=== PATIENT | female | born 1950 | race Caucasian/White ===

== ENCOUNTER → 2024-05-18 | Outpatient (CLI) | payer MEDICARE, BC, SELFPAY ==
--- NOTE | 2024-05-18 13:32 | XR_ITS ---
Examination: PA lateral chest 2 views TECHNIQUE: Upright PA lateral chest 2 views Exam date and time: May 18, 2024 1405 hours Comparison March 19, 2023 INDICATIONS: Shortness of breath several years worse beginning February 2024 FINDINGS: Moderate enlargement cardiac contour Likely mitral prosthetic valve Median sternotomy wires Ventricular cardiac lead satisfactory position Moderate vascular congestion No lobar pneumonia Moderate hyperexpansion IMPRESSION: Moderate enlargement cardiac contour Moderate vascular congestion
[2024-05-18 16:35] LABS: Basophils % (Auto) 0 % (0-2.5); Eosinophils % (Auto) 0 % (0-10); Hematocrit 42.9 % (36.0-46.0); Hemoglobin 14.3 g/dL (12.0-16.0); Immature Granulocytes % (Auto) 0 % (0-0); Immature Granulocytes Auto 0.02 Thou/mm3 (0.00-0.00); Lymphocytes # (Auto) 1.8 Thou/mm3 (1.0-4.8); Lymphocytes % (Auto) 30 % (10-50); Mean Corpuscular HGB Conc 33.3 g/dl (31.0-37.0); Mean Corpuscular Hemoglobin 31.2 pg (25.0-35.0); Mean Corpuscular Volume 94 fL (80-100); Monocytes # (Auto) 0.7 Thou/mm3 (0.0-0.8); Monocytes % (Auto) 11 % (0-12); Neutrophils # (Auto) 3.3 Thou/mm3 (1.8-7.7); Neutrophils % (Auto) 57 % (37-80); Nucleated Red Blood Cell % 0 /100 WBC (0); Platelet Count 187 Thou/mm3 (140-440); RDW Standard Deviation 48.2 fL (36.4-46.3); Red Blood Count 4.59 Miln/mm3 (4.00-5.20); White Blood Count 5.8 Thou/mm3 (3.6-11.0)
[2024-05-18 16:47] LABS: B-Type Natriuretic Peptide 151 pg/mL (0-100)
[2024-05-18 17:05] LABS: Alanine Aminotransferase 34 U/L (10-49); Albumin, Serum 5.2 gm/dL (3.4-4.8); Albumin/Globulin Ratio 2.5 (1.2-2.2); Alkaline Phosphatase 66 U/L (46-116); Anion Gap 10 (7-16); Aspartate Amino Transferase 30 U/L (0-34); BUN/Creatinine Ratio 20 Ratio (12-20); Bilirubin,Total 1.3 mg/dL (0.3-1.2); Blood Urea Nitrogen 16 mg/dL (9-23); Calcium 10.6 mg/dL (8.3-10.6); Calcium (Corrected) 10.6 mg/dL (8.5-10.1); Carbon Dioxide 26.6 mMol/L (20.0-31.0); Chloride 99 mMol/L (98-107); Creatinine (Component) 0.8 mg/dL (0.6-1.3); Globulin 2.1 gm/dL (2.3-3.5); Glucose 93 mg/dL (74-106); Osmolality,Calculated 273 (275-295); Potassium 4.4 mMol/L (3.4-5.1); Sodium 136 mMol/L (136-145); Total Protein 7.3 gm/dL (5.7-8.2); eGFR > 60 See Note
== END | disposition home or self-care (01) ==
LOC: COPL 13:22
PROVIDERS: PCP Family Medicine; Referring Provider Internal Medicine Interventional Cardiology; Visit Provider Radiology Diagnostic Radiology
DX: I51.7 Cardiomegaly (principal); R09.89 Other specified symptoms and signs involving the circulatory and respiratory systems; I50.22 Chronic systolic (congestive) heart failure
CPT/HCPCS: 36415; 71046; 80053; 83880; 85025

== ENCOUNTER 2024-05-22 11:20 | Emergency (ER) | payer MEDICARE, BC, SELFPAY ==
[2024-05-22] VITALS (8 sets, daily range): BP systolic 142–197; BP diastolic 62–87; PULSE 70–75; RESP 12–20; TEMP 36.6–37.2; O2SAT 95–100; BMI 24.0
--- NOTE | 2024-05-22 11:36 | XR_ITS ---
Examination: AP chest single view TECHNIQUE: AP portable upright chest single view Exam date and time: May 22, 2024 1212 hours Comparison May 18, 2024 INDICATIONS: Chest pain shortness of breath today. FINDINGS: Early CHF Moderate enlargement cardiac contour Prosthetic valve Median sternotomy wires CABG Prominent vascular congestion including central vascular engorgement Early septal edema at the lung bases Prominent osteopenia IMPRESSION: Early CHF
--- NOTE | 2024-05-22 11:38 | EDNOTE_ITS ---
ED General RME/HPI General Chief complaint: Shortness of Breath/Dyspnea Stated complaint: SOB Time Seen by Provider: 05/22/24 11:36 Arrival date/time: 05/22/24 11:20 RME / HPI RME / HPI narrative: 73-year-old female patient to be significant history of chronic A-fib hypertension, pulmonary hypertension, was brought in by EMS for evaluation regarding worsening shortness of breath. Patient has been having shortness of breath since February, today patient is having worsening shortness of breath, patient has to stop and sit down due to worsening shortness of breath, severity of symptoms moderate. Patient also complaining of chest pressure. Patient was seen by health outcomes liaison last Saturday, workup was done pending results. Denies any other complaints. No medications taken prior travel. Related Data Home Medications ?Medication ?Instructions ?Recorded ?Confirmed metoprolol succinate 100 mg 100 mg PO QDAY ##0 07/29/14 04/02/20 tablet,extended release 24 hr (Toprol XL) apixaban 5 mg tablet (Eliquis) 5 mg PO BID 04/17/18 04/02/20 Previous Rx's ?Medication ?Instructions ?Recorded diltiazem HCl 120 mg 240 mg (2 x 120 mg) PO DAILY #30 01/28/20 capsule,extended release 24 hr caps Allergies Allergy/AdvReac Type Severity Reaction Status Date / Time morphine AdvReac Mild severe Verified 04/02/20 13:46 vomiting Review of Systems Review of Systems Narrative Review of Systems: Review of system reviewed and within normal limits except mentioned in HPI ED Exam Narrative Physical exam: VITAL SIGNS: Reviewed. GENERAL APPEARANCE: Alert and interactive, follows commands, no acute distress, HEAD AND FACE: Non-traumatic. ENT: PERRL, pink conjunctivitis, eyelid no trauma, Mucous membrane moist. NECK: Supple, nontender, no nuchal rigidity. CHEST: No tenderness, no crepitus, no paradoxical movement, no retractions. LUNGS: Clear, well ventilated, symmetric, no rales, no wheezing, no ronchi, no stridor, good breath sounds bilaterally. HEART: Regular rate, regular rhythm, no murmur, no gallops. ABDOMEN: Soft, positive bowel sounds, nondistended, no guarding, nontender, no rebound, no masses, RECTAL: Deferred. GENITAL: Deferred. NEUROLOGICAL: Gross motor function intact sensory function intact, Appropriate for age. MUSCULOSKELETAL: low back nontender, full range of motion. EXTREMITIES: Nontender, full range of motion. SKIN: Color pink, dry, no rash, no lacerations, no abrasions, no contusions. LYMPHATICS: Deferred. Course Quality Measures none Orders Category Date Time Status CT Screening NOW Care 05/22/24 13:51 Active EKG (ED ONLY) *Do not use* NOW Care 05/22/24 11:[address] angio chest Stat Exams 05/22/24 13:51 Completed EKG (ED Only) Stat Exams 05/22/24 11:36 Ordered XR chest 1V Stat Exams 05/22/24 11:36 Completed B-Type Natriuretic Peptide Stat Lab 05/22/24 11:46 Completed CBC Stat Lab 05/22/24 11:46 Completed Comprehensive Metabolic Panel Stat Lab 05/22/24 11:46 Completed D-Dimer Stat Lab 05/22/24 11:46 Completed Partial Thromboplastin Time Stat Lab 05/22/24 11:46 Completed Prothrombin Time with INR Stat Lab 05/22/24 11:46 Completed Troponin I Stat Lab 05/22/24 11:46 Completed Urinalysis, C/S if Indicated Stat Lab 05/22/24 13:06 Completed Furosemide Inj [Lasix Inj] Med 05/22/24 13:51 Discontinued 40 mg IVP X1 ONE Vital Signs Vital signs: Vital Signs Temperature 98.9 F 05/22/24 11:30 Pulse Rate 70 05/22/24 11:30 Respiratory Rate 19 05/22/24 11:30 Blood Pressure 197/87 H 05/22/24 11:30 Pulse Oximetry (%) 100 05/22/24 11:30 Oxygen Delivery Method Room Air 05/22/24 11:30 [facility] Patient data External records reviewed:: None Clinical information provided by:: patient Social determinants that could affect healthcare access:: none Patient has the following chronic illnesses:: Pulmonary hypertension congestive heart failure hypertension How is presenting disease/condition affected by chronic disease/condition?: e xacerbated by Evaluation data The following diagnostics were reviewed and interpreted by me:: lab results, radiology exam(s) and EKG tracing(s) Lab and/or radiology exams considered but not ordered:: None Interpretation Summary: EKG showed paced rhythm, ventricular rate of 72 bpm, ST segment elevation depression noted. Laboratory all came back unremarkable. Right lower troponin was noted to be normal urinalysis no UTI D-dimer was noted to be 639. I did a CT angiogram of the chest and showed Pulmonary artery hypertension No pulmonary artery emboli Atelectasis left lower lung zone Mild to moderate vascular congestion No casey pulmonary edema or lobar pneumonia Medications Medications considered but not ordered:: None Medication administrations:: Medication Administration History Discontinued Medications Furosemide (Furosemide Inj 10 Mg/Ml 4ml Vial) 40 mg IVP X1 ONE Stop: 05/22/24 13:52 Last Admin: 05/22/24 14:13 Dose: 40 mg Documented By: [facility] Lasix IV Consultations Consultation(s) initiated? (list below): No Diagnosis Differential Diagnosis ED Complaint MDM: shortness of breath, congestive heart failure, history of pulmonary hyper Most likely diagnosis given after review of the tests above:: Shortness of breath, congestive heart failure, history of pulm hypertension Admission Indicated Admission indicated?: not indicated Explain why admission is indicated or not indicated:: Stable Admission Request Was there a request for admission?: No Disposition Plan Disposition Plan: Discharge Discharge Attestation Discharge Attestation: The patient and all family members were given an opportunity to ask questions and understood the discharge instructions. Discharge instructions specifically effects, indications for sooner follow up or return to the emergency department, and the expected course of current diagnosis. Patient condition: Stable Medical Decision Making MDM Narrative MDM Narrative: 73-year-old female patient to be significant history of chronic A-fib hypertension, pulmonary hypertension, was brought in by EMS for evaluation regarding worsening shortness of breath. Patient has been having shortness of breath since February, today patient is having worsening shortness of breath, patient has to stop and sit down due to worsening shortness of breath, severity of symptoms moderate. Patient also complaining of chest pressure. Patient was seen by health outcomes liaison last Saturday, workup was done pending results. Denies any other complaints. No medications taken prior travel. Patient's workup including CT angiogram of the chest and abdomen, came came back with no acute pathology no PE, except for pulmonary hypertension and mild and moderate vascular congestion. Laboratory workup also came back unremarkable. Currently patient is satting 95% on room air. Patient was given 40 mg of IV Lasix. Patient told me that she will be following with her PCP this coming Saturday. I advised her to continue taking her water pill that she stopped taking it for several weeks now. Differential Diagnosis Differential Diagnosis: shortness of breath, congestive heart failure, history of pulmonary hyper Lab Data 05/22/24 11:46 05/22/24 11:46 Labs: Lab Results 05/22/24 05/22/24 Range/Units 11:46 13:06 WBC 5.3 (3.6-11.0) Thou/mm3 RBC 4.44 (4.00-5.20) Miln/mm3 Hgb 14.1 (12.0-16.0) g/dL Hct 40.7 (36.0-46.0) % MCV 92 (80-100) fL MCH 31.8 (25.0-35.0) pg MCHC 34.6 (31.0-37.0) g/dl RDW Std Deviation 47.9 H (36.4-46.3) fL Plt Count 162 (140-440) Thou/mm3 Neut % (Auto) 58 (37-80) % Lymph % (Auto) 30 (10-50) % [place] % (Auto) 12 (0-12) % Eos % (Auto) 0 (0-10) % Baso % (Auto) 0 (0-2.5) % Neut # (Auto) 3.0 (1.8-7.7) Thou/mm3 Lymph # (Auto) 1.6 (1.0-4.8) Thou/mm3 [place] # (Auto) 0.6 (0.0-0.8) Thou/mm3 Eos # (Auto) 0.0 (0.0-0.5) Thou/mm3 Baso # (Auto) 0.0 (0.0-0.2) Thou/mm3 Immature Gran # (Auto) 0.01 H (0.00-0.00) Thou/mm3 Absolute Nucleated RBC 0.00 (0.00-0.00) Thou/mm3 Immature Gran % 0 (0-0) % Nucleated RBC % 0 (0) /100 WBC PT 12.6 H (9.0-12.2) Seconds INR 1.2 (0.9-1.3) APTT 30.0 (22.0-36.0) Seconds D-Dimer 639 H (<600) ng/mL Sodium 133 L (136-145) mMol/L Potassium 4.4 (3.4-5.1) mMol/L Chloride 103 (98-107) mMol/L Carbon Dioxide 25.2 (20.0-31.0) mMol/L Anion Gap 5 L (7-16) BUN 14 (9-23) mg/dL Creatinine 0.7 (0.6-1.3) mg/dL Estim Creat Clear Calc 60.1 L (>60) mL/min eGFR > 60 (60 - ) See Note BUN/Creatinine Ratio 20 (12-20) Ratio Glucose 117 H (74-106) mg/dL Calculated Osmolality 267 L (275-295) Calcium 10.2 (8.3-10.6) mg/dL Corrected Calcium 10.2 H (8.5-10.1) mg/dL Total Bilirubin 1.2 (0.3-1.2) mg/dL AST 27 (0-34) U/L ALT 28 (10-49) U/L Alkaline Phosphatase 64 (46-116) U/L Troponin I 0.020 (0.0-0.045) ng/mL B-Natriuretic Peptide 176 H (0-100) pg/mL Total Protein 7.1 (5.7-8.2) gm/dL Albumin 5.0 H (3.4-4.8) gm/dL Globulin 2.1 L (2.3-3.5) gm/dL Albumin/Globulin Ratio 2.4 H (1.2-2.2) Ur Collection Type Clean Catch Urine Color Yellow (Lt Yel-Yel) Urine Clarity Clear (Clear/Hazy) Urine pH 6.0 (5.0-7.0) Ur Specific [place] 1.016 (1.001-1.035) Urine Protein Negative (Neg - Trace) Urine Glucose (UA) 4+ A (Negative) Urine Ketones Negative (Negative) Urine Blood Negative (Negative) Urine Nitrite Negative (Negative) Urine Bilirubin Negative (Negative) Urine Urobilinogen (Auto) Negative (0.0-1.0) mg/dL Ur Leukocyte Esterase Negative (Negative) Urine RBC 3 (0-3) /hpf Urine WBC 5 (0-5) /hpf Ur Squamous Epith Cells < 1 (0-5) /hpf Urine Bacteria None (None) Ur Culture Indicated? Not Indicated Discharge Plan Plan Patient Disposition: HOME (Self Care) Disposition Comment: Stable Prescriptions/Referrals Prescriptions/Med Rec: No Action metoprolol succinate [Toprol XL] 100 MG tablet extended release 24 hr 100 mg PO QDAY Qty: 0 diltiazem HCl 120 mg Capsule,Extended Release 24hr 240 mg PO DAILY Qty: 30 0RF Eliquis 5 mg Tablet 5 mg PO BID Hold Instructions: Resume on 03/31/20. only if no bleeding noted Referrals: Michael Denson MD [Primary Care Provider] - In 1 week Problem List Clinical Impression: Shortness of breath, Congestive heart failure, Pulmonary hypertension Patient/Caregiver Discharge Instructions Discharge Activity: activity as tolerated Education Materials: Heart Failure Additional Instructions: Thank you for the opportunity for serving you today. You are stable for discharged . You are advised to: Follow-up with your PCP in 1 to 2 days Return to ED for worsening of symptoms Please resume taking your water pills Print Language: Palestinian Stand Alone Forms: Ting Award Info., Patient Portal Info Letter ANGIE/ABHI Supervising Physician ANGIE/ABHI Supervising Physician: MD Nydia
[2024-05-22 12:09] LABS: Basophils % (Auto) 0 % (0-2.5); Eosinophils % (Auto) 0 % (0-10); Hematocrit 40.7 % (36.0-46.0); Hemoglobin 14.1 g/dL (12.0-16.0); Immature Granulocytes % (Auto) 0 % (0-0); Immature Granulocytes Auto 0.01 Thou/mm3 (0.00-0.00); Lymphocytes # (Auto) 1.6 Thou/mm3 (1.0-4.8); Lymphocytes % (Auto) 30 % (10-50); Mean Corpuscular HGB Conc 34.6 g/dl (31.0-37.0); Mean Corpuscular Hemoglobin 31.8 pg (25.0-35.0); Mean Corpuscular Volume 92 fL (80-100); Monocytes # (Auto) 0.6 Thou/mm3 (0.0-0.8); Monocytes % (Auto) 12 % (0-12); Neutrophils % (Auto) 58 % (37-80); Nucleated Red Blood Cell % 0 /100 WBC (0); Platelet Count 162 Thou/mm3 (140-440); RDW Standard Deviation 47.9 fL (36.4-46.3); Red Blood Count 4.44 Miln/mm3 (4.00-5.20); White Blood Count 5.3 Thou/mm3 (3.6-11.0)
[2024-05-22 12:27] LABS: INR 1.2 (0.9-1.3); Prothrombin Time 12.6 Seconds (9.0-12.2)
[2024-05-22 12:29] LABS: B-Type Natriuretic Peptide 176 pg/mL (0-100)
[2024-05-22 12:33] LABS: Alanine Aminotransferase 28 U/L (10-49); Albumin/Globulin Ratio 2.4 (1.2-2.2); Alkaline Phosphatase 64 U/L (46-116); Anion Gap 5 (7-16); Aspartate Amino Transferase 27 U/L (0-34); BUN/Creatinine Ratio 20 Ratio (12-20); Bilirubin,Total 1.2 mg/dL (0.3-1.2); Blood Urea Nitrogen 14 mg/dL (9-23); Calcium 10.2 mg/dL (8.3-10.6); Calcium (Corrected) 10.2 mg/dL (8.5-10.1); Carbon Dioxide 25.2 mMol/L (20.0-31.0); Chloride 103 mMol/L (98-107); Creatinine (Component) 0.7 mg/dL (0.6-1.3); Estimated Creatinine Clearance 60.1 mL/min (>60); Globulin 2.1 gm/dL (2.3-3.5); Glucose 117 mg/dL (74-106); Osmolality,Calculated 267 (275-295); Potassium 4.4 mMol/L (3.4-5.1); Sodium 133 mMol/L (136-145); Total Protein 7.1 gm/dL (5.7-8.2); eGFR > 60 See Note
[2024-05-22 13:13] LABS: Collection Type, Urine Clean Catch
[2024-05-22 13:21] LABS: D-Dimer 639 ng/mL (<600)
[2024-05-22 13:30] LABS: Bilirubin,Urine Negative (Negative); Blood,Urine Negative (Negative); Clarity,Urine Clear (Clear/Hazy); Color,Urine Yellow (Lt Yel-Yel); Culture Indicated,Urine Not Indicated; Glucose, Urine 4+ (Negative); Ketones,Urine Negative (Negative); Leukocyte Esterase,Urine Negative (Negative); Nitrite,Urine Negative (Negative); Protein,Urine Negative (Neg - Trace); RBC,Urine 3 /hpf (0-3); Specific Gravity,Urine 1.016 (1.001-1.035); Squamous Epithelial Cell,Urine < 1 /hpf (0-5); Urobilinogen,Urine Negative mg/dL (0.0-1.0); WBC,Urine 5 /hpf (0-5)
--- NOTE | 2024-05-22 13:51 | XR_ITS ---
Examination: CTA chest with intravenous contrast 2-D reconstructions 3-D reconstructions, vascular Date and time of exam: May 22, 2024 at 1507 hours INDICATIONS: Onset shortness of breath chest pain today CTDI: vol (mGy) 15.8 DLP: (mGycm) 341 Technique: Multiple axial sections of the thorax have been obtained. 3 mm slice thickness, from below the hemidiaphragms to above the apices of the lungs. Mediastinal and lung density settings have been obtained. 2-D sagittal and coronal reconstructions. 3-D angiographic renderings, 3-D volume renderings, 3D post processing, vascular maximum intensity projections obtained. Contrast administered is 100 cc [id number]. Low dose protocols were performed. One or more of the following dose reduction techniques were used; automated exposure control, adjustment of the mA and/or KV according to patient size, use of iterative reconstruction technique. Findings: No thoracic aortic aneurysm dilatation Main pulmonary artery segment 39 mm No pulmonary artery emboli Mild to moderate enlargement cardiac contour No paratracheal tracheobronchial or bronchopulmonary adenopathy Atelectasis in the left lower lung zone Mild to moderate vascular congestion No lobar pneumonia Splenic calcifications No focal liver lesion Absent gallbladder No pancreatic mass Kidneys partially visualized no hydronephrosis Moderate osteopenia IMPRESSION: Pulmonary artery hypertension No pulmonary artery emboli Atelectasis left lower lung zone Mild to moderate vascular congestion No casey pulmonary edema or lobar pneumonia
[2024-05-22] MEDS: FUROSEMIDE INJ 10 MG/ML 4ML VIAL 40 MG IVP (14:13)
== END 2024-05-22 17:30 | disposition home or self-care (01) ==
PROVIDERS: Nurse Practitioner Family; Emergency Provider Emergency Medicine; PCP Family Medicine
DX: I11.0 Hypertensive heart disease with heart failure (principal); I50.9 Heart failure, unspecified; I27.21 Secondary pulmonary arterial hypertension; I48.20 Chronic atrial fibrillation, unspecified
CPT/HCPCS: 36415; 71045; 71275; 80053; 81001; 83880; 84484; 85025; 85379; 85610; 85730; 93005; 99285; A4649; J1940; Q9967

== ENCOUNTER → 2025-04-16 | Outpatient (CLI) | payer MEDICARE, BC, SELFPAY ==
[2025-04-16 08:16] LABS: Collection Type, Urine Clean Catch
[2025-04-16 08:37] LABS: Bilirubin,Urine Negative (Negative); Blood,Urine 1+ (Negative); Clarity,Urine Clear (Clear/Hazy); Color,Urine Lt-Yellow (Lt Yel-Yel); Culture Indicated,Urine Not Indicated; Glucose, Urine 4+ (Negative); Ketones,Urine Negative (Negative); Leukocyte Esterase,Urine Negative (Negative); Nitrite,Urine Negative (Negative); PH,Urine 6.0 (5.0-7.0); Protein,Urine Negative (Neg - Trace); RBC,Urine 19 /hpf (0-3); Specific Gravity,Urine 1.016 (1.001-1.035); Squamous Epithelial Cell,Urine < 1 /hpf (0-5); Urobilinogen,Urine Negative mg/dL (0.0-1.0); WBC,Urine 3 /hpf (0-5)
[2025-04-16 08:44] LABS: Vitamin B12 1158 pg/mL (211-911); Vitamin D 25 Hydroxy Total 63.0 ng/mL (7.3-40.2)
[2025-04-16 08:49] LABS: Alanine Aminotransferase 23 U/L (10-49); Albumin, Serum 4.7 gm/dL (3.4-4.8); Albumin/Globulin Ratio 2.5 (1.2-2.2); Alkaline Phosphatase 54 U/L (46-116); Anion Gap 6 (7-16); Aspartate Amino Transferase 29 U/L (0-34); BUN/Creatinine Ratio 27 Ratio (12-20); Bilirubin,Total 0.6 mg/dL (0.3-1.2); Blood Urea Nitrogen 19 mg/dL (9-23); Calcium 9.6 mg/dL (8.3-10.6); Calcium (Corrected) 9.6 mg/dL (8.5-10.1); Carbon Dioxide 27.3 mMol/L (20.0-31.0); Cardiac Risk Estimate 2.1 RATIO (3.7-5.6); Chloride 106 mMol/L (98-107); Cholesterol 136 mg/dL (132-200); Creatinine (Component) 0.7 mg/dL (0.6-1.3); Digoxin 0.5 ng/mL (0.8-2.0); Globulin 1.9 gm/dL (2.3-3.5); Glucose 102 mg/dL (74-106); HDL Cholesterol 66 mg/dL (40-60); LDL Cholesterol,Calculated 58 mg/dL (0-130); Osmolality,Calculated 279 (275-295); Potassium 4.4 mMol/L (3.4-5.1); Sodium 139 mMol/L (136-145); Thyroid Stimulating Hormone 1.03 uIU/mL (0.55-4.78); Total Protein 6.6 gm/dL (5.7-8.2); Triglycerides 58 mg/dL (30-150); eGFR > 60 See Note
[2025-04-16 10:00] LABS: Basophils # (Auto) 0.0 Thou/mm3 (0.0-0.2); Basophils % (Auto) 0 % (0-2.5); Eosinophils # (Auto) 0.1 Thou/mm3 (0.0-0.5); Eosinophils % (Auto) 1 % (0-10); Hematocrit 37.2 % (36.0-46.0); Hemoglobin 12.0 g/dL (12.0-16.0); Immature Granulocytes Auto 0.00 Thou/mm3 (0.00-0.00); Lymphocytes # (Auto) 1.0 Thou/mm3 (1.0-4.8); Lymphocytes % (Auto) 28 % (10-50); Mean Corpuscular HGB Conc 32.3 g/dl (31.0-37.0); Mean Corpuscular Hemoglobin 31.3 pg (25.0-35.0); Mean Corpuscular Volume 97 fL (80-100); Monocytes # (Auto) 0.5 Thou/mm3 (0.0-0.8); Monocytes % (Auto) 12 % (0-12); Neutrophils # (Auto) 2.1 Thou/mm3 (1.8-7.7); Neutrophils % (Auto) 58 % (37-80); Nucleated Red Blood Cell # 0.00 Thou/mm3 (0.00-0.00); Nucleated Red Blood Cell % 0 /100 WBC (0); Platelet Count 148 Thou/mm3 (140-440); RDW Standard Deviation 49.3 fL (36.4-46.3); Red Blood Count 3.83 Miln/mm3 (4.00-5.20); White Blood Count 3.7 Thou/mm3 (3.6-11.0)
== END | disposition home or self-care (01) ==
LOC: COPL 07:43
PROVIDERS: PCP Family Medicine; Referring Provider Physician Assistant; Visit Provider Physician Assistant
DX: I10 Essential (primary) hypertension (principal); E78.5 Hyperlipidemia, unspecified; E55.9 Vitamin D deficiency, unspecified
CPT/HCPCS: 36415; 80053; 80061; 80162; 81001; 82306; 82607; 84443; 85025